=== PATIENT | female | born 1990 | race Caucasian/White ===

== ENCOUNTER → 2018-10-14 | Outpatient (REF) | payer OTHER | LOC: M LAB REF 16:22 | PROVIDERS: ATTEND Physician Assistant | DX: R30.0 Dysuria (principal) ==

== ENCOUNTER → 2019-06-02 | Outpatient (REF) | payer OTHER ==
[2019-06-02 16:49] LABS: HEMATOCRIT 39.7 % (36.0-47.0); HEMOGLOBIN 13.3 g/dl (12.0-15.5); MEAN CORPUSCULAR HEMOGLOBIN 34.9 pg (27.0-33.0); MEAN CORPUSCULAR HGB CONC 33.5 g/dl (32.0-36.5); MEAN CORPUSCULAR VOLUME 104.2 fl (80.0-96.0); PLATELET COUNT, AUTOMATED 223 10^3/uL (150-450); RED BLOOD COUNT 3.81 10^6/uL (4.00-5.40); WHITE BLOOD COUNT 9.1 10^3/uL (4.0-10.0)
[2019-06-02 19:52] LABS: HCG, SERUM QUANTITATIVE 99806 MIU/ML; RUBELLA IgG QUALITATIVE IMMUNE (IMMUNE)
[2019-06-04 11:43] LABS: HIV 1&2 SCREEN CENTAUR NEGATIVE (NEGATIVE)
== END ==
LOC: M LAB REF 16:24
PROVIDERS: ATTEND Nurse Practitioner Women's Health
DX: O36.80X0 Pregnancy with inconclusive fetal viability, not applicable or unspecified (principal)

== ENCOUNTER → 2020-11-02 | Outpatient (CLI) | payer OTHER ==
--- NOTE | 2020-11-02 08:29 | REP ---
INDICATION: RT KNEE NON DISPLACED FX TIBIA. COMPARISON: None. TECHNIQUE: Axial noncontrast images through the right knee with coronal and sagittal reformations. FINDINGS: There is a lateral tibial plateau fracture with 1 mm of impaction along with an ovoid nondisplaced avulse fracture fragment along the lateral tibial metaphysis. Visualized fibula, femur, and patella are intact. Moderate to large joint/suprapatellar effusion and posttraumatic subcutaneous fat stranding noted. Visualized musculature appears intact. IMPRESSION: Lateral tibial plateau fracture and avulse fracture fragment along the lateral tibial metaphysis. Associated effusion and posttraumatic subcutaneous fat stranding. <Electronically signed by Mohinder Gutiérrez > 11/02/20 [id number]
== END ==
LOC: M RAD 07:52
PROVIDERS: ATTEND Physician Assistant
DX: S82.124D Nondisplaced fracture of lateral condyle of right tibia, subsequent encounter for closed fracture with routine healing (principal); X58.XXXD Exposure to other specified factors, subsequent encounter

== ENCOUNTER → 2024-02-06 | Outpatient (REF) | payer OTHER ==
[2024-02-06 18:29] LABS: Trichomonas vaginalis (AMP) NOT DETECTED (NEGATIVE)
[2024-02-06 18:53] LABS: GC DNA AMPLIFICATION NEGATIVE (NEGATIVE)
== END ==
LOC: M LAB REF 16:21
PROVIDERS: ATTEND Nurse Practitioner Family
DX: R30.0 Dysuria (principal)